=== PATIENT | female | born 1970 | race Caucasian/White ===

== ENCOUNTER 2024-09-14 00:54 | Inpatient (IN) | payer BC ==
[~2024-09-14] VITALS: Ht 167.6 cm; Wt 68.0 kg
[2024-09-14] VITALS (15 sets, daily range): BP systolic 85–135; BP diastolic 51–103; PULSE 78–112; RESP 10–20; TEMP 96.7–98.7; O2SAT 92–100
[2024-09-14] MEDS ORDERED: octreotide inj. 1,250 MCG in normal saline 250ml IV soln 250 ML IV ONE (01:15)
[2024-09-14] MEDS: normal saline 1000ml 1,000 ML IV ONE (01:43)
[2024-09-14 02:01] LABS: INR 1.9 INR; PROTHROMBIN TIME 18.9 SECONDS (9.0-12.0)
[2024-09-14] MEDS: octreotide inj. 500 MCG in normal saline 100ml IV soln 97.5 ML IV SCH (02:02)
[2024-09-14 02:04] LABS: ALANINE AMINOTRANSFERASE 30 U/L (12-78); ALKALINE PHOSPHATASE 74 IU/L (46-116); ANION GAP 4 (8-16); ASPARTATE AMINO TRANSFERASE 81 U/L (10-37); BILIRUBIN,TOTAL 9.1 MG/DL (0.1-1.0); BLOOD UREA NITROGEN 10 MG/DL (7-18); BUN/CREATININE RATIO 16.4 (10.0-20.0); CALCIUM 7.8 MG/DL (8.5-10.1); CHLORIDE 98 MMOL/L (99-107); CREATININE 0.61 MG/DL (0.40-0.90); GLUCOSE 140 MG/DL (70-104); SODIUM 137 MMOL/L (135-145); TOTAL CARBON DIOXIDE 34.7 MMOL/L (24-32); eCRCL 98 ML/MIN; eGFR > 90 ML/MIN
[2024-09-14] MEDS: pantoprazole 40MG/NS 100ML BAG 100 ML IV ONE (02:05)
[2024-09-14 02:21] LABS: ALBUMIN/GLOBULIN RATIO 0.6 (1.1-1.5); HEMOGLOBIN 9.1 g/dl (12.0-16.0); MONOCYTES # (AUTO) 0.5 X10'3 (0-0.9); POTASSIUM 3.4 MMOL/L (3.5-5.1); TOTAL PROTEIN 5.3 G/DL (6.4-8.2)
[2024-09-14 02:23] LABS: BASOPHILS % (AUTO) 0.7 % (0-1); EOSINOPHILS % (AUTO) 1.1 % (0-6); HEMATOCRIT 25.7 % (35.0-45.0); LYMPHOCYTES # (AUTO) 1.2 X10'3 (1.1-4.8); LYMPHOCYTES % (AUTO) 24.8 % (21-51); MEAN CORPUSCULAR HEMOGLOBIN 41.8 PG (27.0-31.0); MEAN CORPUSCULAR HGB CONC 35.3 g/dL (33.0-36.5); MEAN CORPUSCULAR VOLUME 118.3 FL (78-98); MEAN PLATELET VOLUME 8.8 FL (7.4-10.4); MONOCYTES % (AUTO) 11.5 % (2-12); NEUTROPHILS # (AUTO) 2.9 X10'3 (1.8-7.7); NEUTROPHILS % (AUTO) 61.9 % (42-75); RED BLOOD COUNT 2.17 X10'6 (4.20-5.60); RED CELL DISTRIBUTION WIDTH 15.5 % (11.5-14.5); WHITE BLOOD COUNT 4.6 X10'3 (4.5-11.0)
[2024-09-14 02:26] LABS: PLATELET COUNT 50 X10'3 (140-440)
[2024-09-14] MEDS ORDERED: potassium Cl 40MEQ/1/2NS 520ml 520 ML IV PRN (04:05)
[2024-09-14] MEDS ORDERED: haloperidol lactate 5mg/ml inj IM PRN (04:05)
[2024-09-14] MEDS ORDERED: magnesium hydroxide 30ml (MOM) UD suspension PO PRN (04:05)
[2024-09-14] MEDS ORDERED: ondansetron/PF 4mg/2ml inj IV PRN (04:05)
[2024-09-14] MEDS ORDERED: magnesium Cl slow-release 64mg tablet PO PRN (04:05)
[2024-09-14] MEDS ORDERED: potassium Cl 20 mEq SR tablet PO PRN (04:05)
[2024-09-14] MEDS ORDERED: magnesium sulf-water 4G/100mL 100 ML IV PRN (04:05)
[2024-09-14] MEDS ORDERED: dextrose 50%-water 50ml dispensing syringe IV PRN (04:05)
[2024-09-14] MEDS ORDERED: magnesium sulf-water 2g/50mL 50 ML IV PRN (04:05)
[2024-09-14 04:49] LABS: ELLIPTOCYTES 1+; PLATELET ESTIMATE DECREASED; STOMATOCYTES 2+
[2024-09-14] MEDS: K and/or MAG REPLACEMENT MC SCH (08:00)
[2024-09-14] MEDS: docusate sod 100mg capsule PO SCH (08:00)
[2024-09-14] MEDS ORDERED: LIDOcaine 2% Viscous 15ml cup ONE (08:08)
[2024-09-14] MEDS ORDERED: fentaNYL/PF 50MCG/1 ML 2ML syringe ONE (08:15)
[2024-09-14] MEDS ORDERED: MIDAZolam 1 MG/ML 5ML VIAL ONE (08:16)
[2024-09-14] MEDS: nicotine 14mg patch - 24hr TD SCH (09:53)
[2024-09-14] MEDS: folic acid 1mg/0.2ml inj IV SCH (09:53)
[2024-09-14] MEDS: thiamine 100mg/ml 2ml inj. IV SCH (09:53)
[2024-09-14 10:34] LABS: HEMATOCRIT 30.3 % (35.0-45.0); HEMOGLOBIN 10.5 g/dl (12.0-16.0); MEAN CORPUSCULAR HEMOGLOBIN 39.1 PG (27.0-31.0); MEAN CORPUSCULAR HGB CONC 34.8 g/dL (33.0-36.5); MEAN CORPUSCULAR VOLUME 112.3 FL (78-98); MEAN PLATELET VOLUME 8.9 FL (7.4-10.4); PLATELET COUNT 54 X10'3 (140-440); RED CELL DISTRIBUTION WIDTH 22.5 % (11.5-14.5); WHITE BLOOD COUNT 3.6 X10'3 (4.5-11.0)
[2024-09-14 10:35] LABS: HCG SERUM QL NEGATIVE
[2024-09-14] MEDS: potassium Cl 20 mEq SR tablet PO PRN (13:32)
[2024-09-14 15:22] LABS: % IRON SATURATION 103 % (11-46); IRON 150 UG/DL (49-151); TOTAL IRON BINDING CAPACITY 145 UG/DL (259-388)
[2024-09-14 15:59] LABS: HEMATOCRIT 28.9 % (35.0-45.0); HEMOGLOBIN 10.1 g/dl (12.0-16.0); MEAN CORPUSCULAR HEMOGLOBIN 39.4 PG (27.0-31.0); MEAN CORPUSCULAR VOLUME 112.8 FL (78-98); MEAN PLATELET VOLUME 9.1 FL (7.4-10.4); PLATELET COUNT 53 X10'3 (140-440); RED BLOOD COUNT 2.56 X10'6 (4.20-5.60); RED CELL DISTRIBUTION WIDTH 23.1 % (11.5-14.5); WHITE BLOOD COUNT 4.6 X10'3 (4.5-11.0)
[2024-09-14] MEDS: pantoprazole 40MG/NS 100ML BAG 100 ML IV SCH (16:10)
[2024-09-14] MEDS ORDERED: DIAZ5TAB5 PO (17:35)
[2024-09-14] MEDS ORDERED: ONDA-103 PO (17:35)
[2024-09-14 20:25] LABS: HEMATOCRIT 30.2 % (35.0-45.0); HEMOGLOBIN 10.5 g/dl (12.0-16.0); MEAN CORPUSCULAR HEMOGLOBIN 39.1 PG (27.0-31.0); MEAN CORPUSCULAR HGB CONC 34.7 g/dL (33.0-36.5); MEAN CORPUSCULAR VOLUME 112.7 FL (78-98); MEAN PLATELET VOLUME 8.8 FL (7.4-10.4); PLATELET COUNT 54 X10'3 (140-440); RED BLOOD COUNT 2.68 X10'6 (4.20-5.60); RED CELL DISTRIBUTION WIDTH 22.9 % (11.5-14.5); WHITE BLOOD COUNT 4.9 X10'3 (4.5-11.0)
[2024-09-14] MEDS: LORazepam 2 mg/ml vial IV PRN (21:30)
[2024-09-15] VITALS (9 sets, daily range): BP systolic 78–112; BP diastolic 34–70; PULSE 64–102; RESP 13–20; TEMP 97.4–99.2; O2SAT 89–100
[2024-09-15] MEDS: lactulose 20gm/30ml cup PO SCH (00:43)
[2024-09-15 06:33] LABS: BASOPHILS % (AUTO) 0.9 % (0-1); EOSINOPHILS # (AUTO) 0.1 X10'3 (0-0.9); EOSINOPHILS % (AUTO) 2.3 % (0-6); HEMATOCRIT 30.1 % (35.0-45.0); HEMOGLOBIN 10.4 g/dl (12.0-16.0); LYMPHOCYTES # (AUTO) 1.1 X10'3 (1.1-4.8); LYMPHOCYTES % (AUTO) 28.2 % (21-51); MEAN CORPUSCULAR HEMOGLOBIN 39.5 PG (27.0-31.0); MEAN CORPUSCULAR HGB CONC 34.6 g/dL (33.0-36.5); MEAN CORPUSCULAR VOLUME 114.2 FL (78-98); MONOCYTES # (AUTO) 0.4 X10'3 (0-0.9); MONOCYTES % (AUTO) 10.7 % (2-12); NEUTROPHILS # (AUTO) 2.2 X10'3 (1.8-7.7); NEUTROPHILS % (AUTO) 57.9 % (42-75); PLATELET COUNT 53 X10'3 (140-440); RED BLOOD COUNT 2.64 X10'6 (4.20-5.60); WHITE BLOOD COUNT 3.7 X10'3 (4.5-11.0)
[2024-09-15 06:45] LABS: ALANINE AMINOTRANSFERASE 16 U/L (12-78); ALBUMIN 1.9 G/DL (3.4-5.0); ALKALINE PHOSPHATASE 71 IU/L (46-116); ANION GAP 1 (8-16); ASPARTATE AMINO TRANSFERASE 85 U/L (10-37); BILIRUBIN,TOTAL 8.1 MG/DL (0.1-1.0); BLOOD UREA NITROGEN 12 MG/DL (7-18); CALCIUM 7.2 MG/DL (8.5-10.1); CHLORIDE 104 MMOL/L (99-107); CREATININE 0.63 MG/DL (0.40-0.90); GLUCOSE 88 MG/DL (70-104); MAGNESIUM 1.7 MG/DL (1.5-2.4); SODIUM 140 MMOL/L (135-145); TOTAL CARBON DIOXIDE 34.9 MMOL/L (24-32); eCRCL 94 ML/MIN; eGFR > 90 ML/MIN
[2024-09-15 06:46] LABS: APTT 31 SECONDS (22-32); INR 1.7 INR; PROTHROMBIN TIME 16.7 SECONDS (9.0-12.0)
[2024-09-15 06:53] LABS: ALBUMIN/GLOBULIN RATIO 0.6 (1.1-1.5); TOTAL PROTEIN 5.1 G/DL (6.4-8.2)
[2024-09-15] MEDS: rifaximin 550mg tablet PO SCH (09:44)
[2024-09-15] MEDS ORDERED: albuterol 2.5 MG/3 ML nebule NEB PRN (10:40)
[2024-09-15] MEDS: LORazepam 2 mg/ml vial IV PRN (17:22)
[2024-09-16] VITALS (8 sets, daily range): BP systolic 103–138; BP diastolic 49–77; PULSE 56–114; RESP 14–21; TEMP 96.7–99; O2SAT 91–96
[2024-09-16 07:23] LABS: BASOPHILS % (AUTO) 1.4 % (0-1); EOSINOPHILS # (AUTO) 0.1 X10'3 (0-0.9); EOSINOPHILS % (AUTO) 1.7 % (0-6); HEMATOCRIT 30.7 % (35.0-45.0); HEMOGLOBIN 10.5 g/dl (12.0-16.0); LYMPHOCYTES # (AUTO) 0.9 X10'3 (1.1-4.8); LYMPHOCYTES % (AUTO) 26.3 % (21-51); MEAN CORPUSCULAR HEMOGLOBIN 39.4 PG (27.0-31.0); MEAN CORPUSCULAR HGB CONC 34.1 g/dL (33.0-36.5); MEAN CORPUSCULAR VOLUME 115.7 FL (78-98); MEAN PLATELET VOLUME 9.2 FL (7.4-10.4); MONOCYTES # (AUTO) 0.3 X10'3 (0-0.9); MONOCYTES % (AUTO) 8.6 % (2-12); NEUTROPHILS # (AUTO) 2.2 X10'3 (1.8-7.7); RED BLOOD COUNT 2.65 X10'6 (4.20-5.60); RED CELL DISTRIBUTION WIDTH 23.2 % (11.5-14.5); WHITE BLOOD COUNT 3.5 X10'3 (4.5-11.0)
[2024-09-16 07:29] LABS: PLATELET COUNT 47 X10'3 (140-440)
[2024-09-16 07:34] LABS: APTT 30 SECONDS (22-32); INR 1.6 INR; PROTHROMBIN TIME 16.5 SECONDS (9.0-12.0)
[2024-09-16 07:52] LABS: ALANINE AMINOTRANSFERASE 18 U/L (12-78); ALKALINE PHOSPHATASE 71 IU/L (46-116); ANION GAP 5 (8-16); ASPARTATE AMINO TRANSFERASE 89 U/L (10-37); BILIRUBIN,TOTAL 9.1 MG/DL (0.1-1.0); BLOOD UREA NITROGEN 10 MG/DL (7-18); BUN/CREATININE RATIO 15.6 (10.0-20.0); CALCIUM 7.5 MG/DL (8.5-10.1); CHLORIDE 109 MMOL/L (99-107); CREATININE 0.64 MG/DL (0.40-0.90); GLUCOSE 103 MG/DL (70-104); MAGNESIUM 1.8 MG/DL (1.5-2.4); SODIUM 146 MMOL/L (135-145); TOTAL CARBON DIOXIDE 32.5 MMOL/L (24-32); eCRCL 93 ML/MIN; eGFR > 90 ML/MIN
[2024-09-16 08:01] LABS: ALBUMIN/GLOBULIN RATIO 0.6 (1.1-1.5); PHOSPHORUS 2.4 MG/DL (2.3-4.5); POTASSIUM 3.5 MMOL/L (3.5-5.1); TOTAL PROTEIN 5.3 G/DL (6.4-8.2)
[2024-09-16] MEDS ORDERED: haloperidol 5mg tablet PO PRN (20:10)
[2024-09-16] MEDS ORDERED: LORazepam 1 MG tablet PO PRN (20:10)
[2024-09-16] MEDS ORDERED: haloperidol lactate 5mg/ml inj IM PRN (20:10)
[2024-09-16] MEDS: LORazepam 2 mg/ml vial IV PRN (21:18)
[2024-09-17] VITALS (10 sets, daily range): BP systolic 114–157; BP diastolic 59–72; PULSE 87–108; RESP 14–18; TEMP 97.1–98.8; O2SAT 92–94
[2024-09-17 05:21] LABS: HBSAG SCREEN Negative (Negative); HEPATITIS C VIRUS ANTIBODY Non Reactive (Non Reactive)
[2024-09-17 07:52] LABS: APTT 30 SECONDS (22-32); INR 1.8 INR; PROTHROMBIN TIME 17.8 SECONDS (9.0-12.0)
[2024-09-17 09:18] LABS: BASOPHILS % (AUTO) 0.8 % (0-1); EOSINOPHILS # (AUTO) 0.1 X10'3 (0-0.9); EOSINOPHILS % (AUTO) 1.2 % (0-6); HEMATOCRIT 34.4 % (35.0-45.0); HEMOGLOBIN 11.6 g/dl (12.0-16.0); LYMPHOCYTES # (AUTO) 1.1 X10'3 (1.1-4.8); LYMPHOCYTES % (AUTO) 25.2 % (21-51); MEAN CORPUSCULAR HEMOGLOBIN 40.4 PG (27.0-31.0); MEAN CORPUSCULAR HGB CONC 33.8 g/dL (33.0-36.5); MEAN CORPUSCULAR VOLUME 119.5 FL (78-98); MEAN PLATELET VOLUME 9.6 FL (7.4-10.4); MONOCYTES # (AUTO) 0.5 X10'3 (0-0.9); MONOCYTES % (AUTO) 11.8 % (2-12); NEUTROPHILS # (AUTO) 2.7 X10'3 (1.8-7.7); PLATELET COUNT 51 X10'3 (140-440); RED BLOOD COUNT 2.88 X10'6 (4.20-5.60); RED CELL DISTRIBUTION WIDTH 24.1 % (11.5-14.5); WHITE BLOOD COUNT 4.5 X10'3 (4.5-11.0)
[2024-09-17] MEDS ORDERED: CefTRIAXone 2gm/D5W 50ml BAG 50 ML IV SCH (09:30)
[2024-09-17 09:45] LABS: ALANINE AMINOTRANSFERASE 27 U/L (12-78); ALBUMIN 2.1 G/DL (3.4-5.0); ALKALINE PHOSPHATASE 77 IU/L (46-116); ANION GAP 10 (8-16); BILIRUBIN,TOTAL 11.7 MG/DL (0.1-1.0); BLOOD UREA NITROGEN 7 MG/DL (7-18); BUN/CREATININE RATIO 12.3 (10.0-20.0); CALCIUM 7.9 MG/DL (8.5-10.1); CHLORIDE 110 MMOL/L (99-107); CREATININE 0.57 MG/DL (0.40-0.90); GLUCOSE 129 MG/DL (70-104); MAGNESIUM 1.7 MG/DL (1.5-2.4); SODIUM 150 MMOL/L (135-145); TOTAL CARBON DIOXIDE 30.4 MMOL/L (24-32); eCRCL 104 ML/MIN; eGFR > 90 ML/MIN
[2024-09-17 09:46] LABS: ALBUMIN/GLOBULIN RATIO 0.6 (1.1-1.5); ASPARTATE AMINO TRANSFERASE 104 U/L (10-37); PHOSPHORUS 3.1 MG/DL (2.3-4.5); POTASSIUM 3.6 MMOL/L (3.5-5.1); TOTAL PROTEIN 5.7 G/DL (6.4-8.2)
[2024-09-17 09:50] LABS: ANISOCYTOSIS 3+; BURR CELLS FEW; ELLIPTOCYTES FEW; PLATELET ESTIMATE DECREASED; TEAR DROP CELLS FEW
[2024-09-17] MEDS: Ursodiol 300mg capsule PO SCH (14:23)
[2024-09-17] MEDS: dextrose 5%-water 1,000 ML IV SCH (14:23)
[2024-09-17] MEDS: pantoprazole 40 MG vial IV SCH (21:28)
[2024-09-18] VITALS (16 sets, daily range): BP systolic 112–150; BP diastolic 54–75; PULSE 74–103; RESP 14–20; TEMP 96.8–97.7; O2SAT 93–98
[2024-09-18 05:27] LABS: AFP,SERUM, TUMOR MARKER 4.2 ng/mL (0.0-9.2)
[2024-09-18 07:42] LABS: BASOPHILS % (AUTO) 1.1 % (0-1); EOSINOPHILS # (AUTO) 0.1 X10'3 (0-0.9); EOSINOPHILS % (AUTO) 1.9 % (0-6); HEMATOCRIT 31.5 % (35.0-45.0); HEMOGLOBIN 10.8 g/dl (12.0-16.0); LYMPHOCYTES # (AUTO) 0.9 X10'3 (1.1-4.8); LYMPHOCYTES % (AUTO) 23.8 % (21-51); MEAN CORPUSCULAR HEMOGLOBIN 40.4 PG (27.0-31.0); MEAN CORPUSCULAR HGB CONC 34.3 g/dL (33.0-36.5); MEAN CORPUSCULAR VOLUME 117.8 FL (78-98); MEAN PLATELET VOLUME 9.4 FL (7.4-10.4); MONOCYTES # (AUTO) 0.6 X10'3 (0-0.9); MONOCYTES % (AUTO) 14.5 % (2-12); NEUTROPHILS # (AUTO) 2.2 X10'3 (1.8-7.7); NEUTROPHILS % (AUTO) 58.7 % (42-75); RED BLOOD COUNT 2.68 X10'6 (4.20-5.60); RED CELL DISTRIBUTION WIDTH 23.5 % (11.5-14.5); WHITE BLOOD COUNT 3.8 X10'3 (4.5-11.0)
[2024-09-18 07:54] LABS: INR 1.9 INR; PROTHROMBIN TIME 18.6 SECONDS (9.0-12.0)
[2024-09-18 07:58] LABS: PLATELET COUNT 46 X10'3 (140-440)
[2024-09-18 08:02] LABS: ALANINE AMINOTRANSFERASE 29 U/L (12-78); ALBUMIN 1.9 G/DL (3.4-5.0); ALKALINE PHOSPHATASE 72 IU/L (46-116); ANION GAP 4 (8-16); ASPARTATE AMINO TRANSFERASE 112 U/L (10-37); BILIRUBIN,TOTAL 12.3 MG/DL (0.1-1.0); BLOOD UREA NITROGEN 5 MG/DL (7-18); BUN/CREATININE RATIO 7.4 (10.0-20.0); CALCIUM 7.9 MG/DL (8.5-10.1); CHLORIDE 110 MMOL/L (99-107); CREATININE 0.68 MG/DL (0.40-0.90); GLUCOSE 136 MG/DL (70-104); MAGNESIUM 1.5 MG/DL (1.5-2.4); SODIUM 148 MMOL/L (135-145); TOTAL CARBON DIOXIDE 33.7 MMOL/L (24-32); eCRCL 88 ML/MIN; eGFR 90 ML/MIN
[2024-09-18 08:08] LABS: ALBUMIN/GLOBULIN RATIO 0.6 (1.1-1.5); PHOSPHORUS 2.3 MG/DL (2.3-4.5); TOTAL PROTEIN 5.2 G/DL (6.4-8.2)
[2024-09-18] MEDS: thiamine 100mg tablet PO SCH (08:44)
[2024-09-18] MEDS: folic acid 1mg tablet PO SCH (08:45)
[2024-09-18] MEDS ORDERED: magnesium sulf-water 2g/50mL 50 ML IV PRN (09:50)
[2024-09-18] MEDS ORDERED: magnesium Cl slow-release 64mg tablet PO PRN (09:50)
[2024-09-18] MEDS ORDERED: potassium Cl 20 mEq SR tablet PO PRN (09:50)
[2024-09-18] MEDS ORDERED: magnesium sulf-water 4G/100mL 100 ML IV PRN (09:50)
[2024-09-18] MEDS: potassium Cl 40MEQ/1/2NS 520ml 520 ML IV PRN (10:06)
[2024-09-18] MEDS: lactose-reduced food (Ensure Enlive) - 237ml bottle PO SCH (13:06)
[2024-09-18 14:12] LABS: HEMATOCRIT 34.4 % (35.0-45.0); HEMOGLOBIN 11.6 g/dl (12.0-16.0); MEAN CORPUSCULAR HEMOGLOBIN 40.4 PG (27.0-31.0); MEAN CORPUSCULAR HGB CONC 33.9 g/dL (33.0-36.5); MEAN CORPUSCULAR VOLUME 119.4 FL (78-98); MEAN PLATELET VOLUME 9.6 FL (7.4-10.4); PLATELET COUNT 56 X10'3 (140-440); RED BLOOD COUNT 2.88 X10'6 (4.20-5.60); WHITE BLOOD COUNT 5.2 X10'3 (4.5-11.0)
[2024-09-19] VITALS (10 sets, daily range): BP systolic 92–127; BP diastolic 44–74; PULSE 89–107; RESP 16–23; TEMP 96.7–98.9; O2SAT 92–98
[2024-09-19 05:03] LABS: BASOPHILS # (AUTO) 0.1 X10'3 (0-0.2); BASOPHILS % (AUTO) 1.7 % (0-1); EOSINOPHILS # (AUTO) 0.1 X10'3 (0-0.9); EOSINOPHILS % (AUTO) 1.9 % (0-6); HEMATOCRIT 30.9 % (35.0-45.0); HEMOGLOBIN 10.7 g/dl (12.0-16.0); MEAN CORPUSCULAR HEMOGLOBIN 41.1 PG (27.0-31.0); MEAN CORPUSCULAR HGB CONC 34.7 g/dL (33.0-36.5); MEAN CORPUSCULAR VOLUME 118.3 FL (78-98); MEAN PLATELET VOLUME 9.8 FL (7.4-10.4); MONOCYTES # (AUTO) 0.6 X10'3 (0-0.9); NEUTROPHILS # (AUTO) 2.2 X10'3 (1.8-7.7); NEUTROPHILS % (AUTO) 56.4 % (42-75); RED BLOOD COUNT 2.61 X10'6 (4.20-5.60); RED CELL DISTRIBUTION WIDTH 23.2 % (11.5-14.5)
[2024-09-19 05:14] LABS: PROTHROMBIN TIME 20.3 SECONDS (9.0-12.0)
[2024-09-19 05:23] LABS: PLATELET COUNT 50 X10'3 (140-440)
[2024-09-19 05:38] LABS: ALANINE AMINOTRANSFERASE 38 U/L (12-78); ALBUMIN 1.8 G/DL (3.4-5.0); ALKALINE PHOSPHATASE 74 IU/L (46-116); ANION GAP 7 (8-16); BILIRUBIN,TOTAL 14.8 MG/DL (0.1-1.0); BLOOD UREA NITROGEN 4 MG/DL (7-18); CALCIUM 8.2 MG/DL (8.5-10.1); CHLORIDE 109 MMOL/L (99-107); GLUCOSE 142 MG/DL (70-104); MAGNESIUM 1.6 MG/DL (1.5-2.4); SODIUM 143 MMOL/L (135-145); TOTAL CARBON DIOXIDE 27.2 MMOL/L (24-32); eCRCL 119 ML/MIN; eGFR > 90 ML/MIN
[2024-09-19 05:40] LABS: ALBUMIN/GLOBULIN RATIO 0.5 (1.1-1.5); ASPARTATE AMINO TRANSFERASE 122 U/L (10-37); POTASSIUM 3.5 MMOL/L (3.5-5.1); TOTAL PROTEIN 5.2 G/DL (6.4-8.2)
[2024-09-19 15:03] LABS: POTASSIUM 2.8 MMOL/L (3.5-5.1)
[2024-09-19] MEDS: lactulose 20gm/30ml cup PO SCH (21:39)
[2024-09-20] VITALS (16 sets, daily range): BP systolic 94–132; BP diastolic 55–80; PULSE 83–104; RESP 16–20; TEMP 97–98.4; O2SAT 92–99
[2024-09-20 08:25] LABS: BASOPHILS # (AUTO) 0.1 X10'3 (0-0.2); BASOPHILS % (AUTO) 1.6 % (0-1); EOSINOPHILS # (AUTO) 0.1 X10'3 (0-0.9); EOSINOPHILS % (AUTO) 1.5 % (0-6); HEMATOCRIT 30.6 % (35.0-45.0); HEMOGLOBIN 10.5 g/dl (12.0-16.0); LYMPHOCYTES # (AUTO) 1.2 X10'3 (1.1-4.8); LYMPHOCYTES % (AUTO) 22.1 % (21-51); MEAN CORPUSCULAR HEMOGLOBIN 40.1 PG (27.0-31.0); MEAN CORPUSCULAR HGB CONC 34.3 g/dL (33.0-36.5); MEAN PLATELET VOLUME 9.4 FL (7.4-10.4); MONOCYTES # (AUTO) 0.8 X10'3 (0-0.9); MONOCYTES % (AUTO) 13.6 % (2-12); NEUTROPHILS # (AUTO) 3.4 X10'3 (1.8-7.7); NEUTROPHILS % (AUTO) 61.2 % (42-75); RED BLOOD COUNT 2.61 X10'6 (4.20-5.60); RED CELL DISTRIBUTION WIDTH 22.4 % (11.5-14.5); WHITE BLOOD COUNT 5.6 X10'3 (4.5-11.0)
[2024-09-20 08:26] LABS: ALANINE AMINOTRANSFERASE 37 U/L (12-78); ALBUMIN 1.9 G/DL (3.4-5.0); ALKALINE PHOSPHATASE 80 IU/L (46-116); ANION GAP 7 (8-16); BILIRUBIN,TOTAL 19.9 MG/DL (0.1-1.0); BLOOD UREA NITROGEN 4 MG/DL (7-18); CALCIUM 8.1 MG/DL (8.5-10.1); CHLORIDE 101 MMOL/L (99-107); SODIUM 137 MMOL/L (135-145); TOTAL CARBON DIOXIDE 29.2 MMOL/L (24-32)
[2024-09-20 08:29] LABS: PLATELET COUNT 49 X10'3 (140-440)
[2024-09-20 08:33] LABS: ALBUMIN/GLOBULIN RATIO 0.6 (1.1-1.5); ASPARTATE AMINO TRANSFERASE 124 U/L (10-37); BUN/CREATININE RATIO 7.1 (10.0-20.0); CREATININE 0.56 MG/DL (0.40-0.90); GLUCOSE 138 MG/DL (70-104); POTASSIUM 3.1 MMOL/L (3.5-5.1); TOTAL PROTEIN 5.1 G/DL (6.4-8.2); eCRCL 106 ML/MIN; eGFR > 90 ML/MIN
[2024-09-20 08:55] LABS: ANISOCYTOSIS 3+; HYPOCHROMASIA 1+; PLATELET ESTIMATE DECREASED; TARGET CELLS FEW
[2024-09-20 08:56] LABS: BURR CELLS FEW
[2024-09-20] MEDS: propranolol 10mg tablet PO SCH (10:24)
[2024-09-20] MEDS: potassium Cl 20 mEq SR tablet PO PRN (10:55)
[2024-09-21] VITALS (10 sets, daily range): BP systolic 95–120; BP diastolic 57–88; PULSE 69–85; RESP 16–19; TEMP 97–98.6; O2SAT 90–100
[2024-09-21 09:01] LABS: BASOPHILS # (AUTO) 0.1 X10'3 (0-0.2); BASOPHILS % (AUTO) 1.2 % (0-1); EOSINOPHILS # (AUTO) 0.1 X10'3 (0-0.9); EOSINOPHILS % (AUTO) 1.4 % (0-6); HEMATOCRIT 31.5 % (35.0-45.0); HEMOGLOBIN 10.9 g/dl (12.0-16.0); LYMPHOCYTES # (AUTO) 1.1 X10'3 (1.1-4.8); MEAN CORPUSCULAR HEMOGLOBIN 40.4 PG (27.0-31.0); MEAN CORPUSCULAR HGB CONC 34.4 g/dL (33.0-36.5); MEAN CORPUSCULAR VOLUME 117.2 FL (78-98); MEAN PLATELET VOLUME 9.5 FL (7.4-10.4); MONOCYTES # (AUTO) 0.9 X10'3 (0-0.9); MONOCYTES % (AUTO) 12.6 % (2-12); NEUTROPHILS # (AUTO) 4.7 X10'3 (1.8-7.7); NEUTROPHILS % (AUTO) 68.8 % (42-75); PLATELET COUNT 81 X10'3 (140-440); RED BLOOD COUNT 2.69 X10'6 (4.20-5.60); WHITE BLOOD COUNT 6.9 X10'3 (4.5-11.0)
[2024-09-21 10:07] LABS: ALANINE AMINOTRANSFERASE 42 U/L (12-78); ALBUMIN 1.9 G/DL (3.4-5.0); ALKALINE PHOSPHATASE 92 IU/L (46-116); ANION GAP 7 (8-16); BILIRUBIN,TOTAL 24.9 MG/DL (0.1-1.0); BLOOD UREA NITROGEN 3 MG/DL (7-18); BUN/CREATININE RATIO 9.4 (10.0-20.0); CALCIUM 8.5 MG/DL (8.5-10.1); CHLORIDE 101 MMOL/L (99-107); CREATININE 0.32 MG/DL (0.40-0.90); SODIUM 135 MMOL/L (135-145); TOTAL CARBON DIOXIDE 27.2 MMOL/L (24-32); eCRCL 186 ML/MIN; eGFR > 90 ML/MIN
[2024-09-21 10:11] LABS: ALBUMIN/GLOBULIN RATIO 0.5 (1.1-1.5); ASPARTATE AMINO TRANSFERASE 112 U/L (10-37); GLUCOSE 121 MG/DL (70-104); POTASSIUM 3.3 MMOL/L (3.5-5.1); TOTAL PROTEIN 5.4 G/DL (6.4-8.2)
[2024-09-21] MEDS ORDERED: magnesium sulf-water 2g/50mL 50 ML IV PRN (12:15)
[2024-09-21] MEDS ORDERED: potassium Cl 20 mEq SR tablet PO PRN (12:15)
[2024-09-21] MEDS ORDERED: potassium Cl 40MEQ/1/2NS 520ml 520 ML IV PRN (12:15)
[2024-09-21] MEDS ORDERED: magnesium sulf-water 4G/100mL 100 ML IV PRN (12:15)
[2024-09-21 12:39] LABS: MAGNESIUM 1.4 MG/DL (1.5-2.4)
[2024-09-21] MEDS: potassium Cl 20 mEq SR tablet PO PRN (13:19)
[2024-09-22] VITALS (12 sets, daily range): BP systolic 88–127; BP diastolic 52–67; PULSE 70–81; RESP 11–18; TEMP 97.1–98.6; O2SAT 95–100
[2024-09-22] MEDS: magnesium Cl slow-release 64mg tablet PO PRN (08:02)
[2024-09-22 13:36] LABS: BASOPHILS % (AUTO) 0.3 % (0-1); EOSINOPHILS # (AUTO) 0.1 X10'3 (0-0.9); HEMATOCRIT 32.3 % (35.0-45.0); HEMOGLOBIN 11.3 g/dl (12.0-16.0); LYMPHOCYTES # (AUTO) 1.2 X10'3 (1.1-4.8); LYMPHOCYTES % (AUTO) 13.3 % (21-51); MEAN CORPUSCULAR HEMOGLOBIN 40.9 PG (27.0-31.0); MEAN CORPUSCULAR VOLUME 116.8 FL (78-98); MEAN PLATELET VOLUME 9.7 FL (7.4-10.4); MONOCYTES % (AUTO) 11.9 % (2-12); NEUTROPHILS # (AUTO) 6.4 X10'3 (1.8-7.7); NEUTROPHILS % (AUTO) 73.5 % (42-75); PLATELET COUNT 112 X10'3 (140-440); RED BLOOD COUNT 2.76 X10'6 (4.20-5.60); RED CELL DISTRIBUTION WIDTH 22.1 % (11.5-14.5); WHITE BLOOD COUNT 8.7 X10'3 (4.5-11.0)
[2024-09-22 13:53] LABS: ALANINE AMINOTRANSFERASE 36 U/L (12-78); ALBUMIN 1.8 G/DL (3.4-5.0); ALKALINE PHOSPHATASE 93 IU/L (46-116); ANION GAP 5 (8-16); BLOOD UREA NITROGEN 6 MG/DL (7-18); CALCIUM 8.3 MG/DL (8.5-10.1); CHLORIDE 101 MMOL/L (99-107); SODIUM 133 MMOL/L (135-145); TOTAL CARBON DIOXIDE 26.9 MMOL/L (24-32)
[2024-09-22 13:57] LABS: ALBUMIN/GLOBULIN RATIO 0.5 (1.1-1.5); ASPARTATE AMINO TRANSFERASE 99 U/L (10-37); BILIRUBIN,TOTAL 27.2 MG/DL (0.1-1.0); BUN/CREATININE RATIO 11.8 (10.0-20.0); CREATININE 0.51 MG/DL (0.40-0.90); GLUCOSE 144 MG/DL (70-104); POTASSIUM 3.9 MMOL/L (3.5-5.1); TOTAL PROTEIN 5.3 G/DL (6.4-8.2); eCRCL 117 ML/MIN; eGFR > 90 ML/MIN
[2024-09-23 02:00] VITALS: BP 123/53; PULSE 76; RESP 17; TEMP 97.8; O2SAT 98
[2024-09-23 07:00] VITALS: BP 108/43; PULSE 74; RESP 16; TEMP 97.3; O2SAT 97
[2024-09-23 07:19] LABS: BASOPHILS # (AUTO) 0.1 X10'3 (0-0.2); BASOPHILS % (AUTO) 1.1 % (0-1); EOSINOPHILS # (AUTO) 0.1 X10'3 (0-0.9); EOSINOPHILS % (AUTO) 1.4 % (0-6); HEMATOCRIT 30.8 % (35.0-45.0); HEMOGLOBIN 10.6 g/dl (12.0-16.0); LYMPHOCYTES # (AUTO) 1.1 X10'3 (1.1-4.8); LYMPHOCYTES % (AUTO) 12.6 % (21-51); MEAN CORPUSCULAR HEMOGLOBIN 40.3 PG (27.0-31.0); MEAN CORPUSCULAR HGB CONC 34.5 g/dL (33.0-36.5); MEAN CORPUSCULAR VOLUME 116.8 FL (78-98); MEAN PLATELET VOLUME 9.6 FL (7.4-10.4); MONOCYTES # (AUTO) 1.1 X10'3 (0-0.9); MONOCYTES % (AUTO) 13.2 % (2-12); NEUTROPHILS % (AUTO) 71.7 % (42-75); PLATELET COUNT 107 X10'3 (140-440); RED BLOOD COUNT 2.63 X10'6 (4.20-5.60); RED CELL DISTRIBUTION WIDTH 21.4 % (11.5-14.5); WHITE BLOOD COUNT 8.4 X10'3 (4.5-11.0)
[2024-09-23 07:42] LABS: ALANINE AMINOTRANSFERASE 32 U/L (12-78); ALBUMIN 1.7 G/DL (3.4-5.0); ALKALINE PHOSPHATASE 92 IU/L (46-116); ANION GAP 8 (8-16); BLOOD UREA NITROGEN 6 MG/DL (7-18); CALCIUM 7.9 MG/DL (8.5-10.1); CHLORIDE 103 MMOL/L (99-107); MAGNESIUM 1.4 MG/DL (1.5-2.4); SODIUM 136 MMOL/L (135-145)
[2024-09-23 07:45] LABS: ALBUMIN/GLOBULIN RATIO 0.5 (1.1-1.5); ASPARTATE AMINO TRANSFERASE 90 U/L (10-37); BILIRUBIN,TOTAL 25.7 MG/DL (0.1-1.0); BUN/CREATININE RATIO 10.2 (10.0-20.0); CREATININE 0.59 MG/DL (0.40-0.90); GLUCOSE 128 MG/DL (70-104); POTASSIUM 3.6 MMOL/L (3.5-5.1); eCRCL 101 ML/MIN; eGFR > 90 ML/MIN
[2024-09-23 11:00] VITALS: BP 90/49; PULSE 74; RESP 18; TEMP 97.9; O2SAT 99
[2024-09-23 11:49] VITALS: BP 92/58; PULSE 71
[2024-09-23 14:34] VITALS: PULSE 70; RESP 16; O2SAT 98
[2024-09-23 15:00] VITALS: BP 90/54; PULSE 71; RESP 17; TEMP 97.7; O2SAT 98
== END 2024-09-23 16:35 | DRG 441 ==
LOC: ER 00:55 → ED HOLD 04:17 → PCU 3S 05:47
PROVIDERS: ADMIT Internal Medicine Pulmonary Disease; ATTEND Internal Medicine
PROC: 30233N1 Transfusion of Nonautologous Red Blood Cells into Peripheral Vein, Percutaneous Approach (ICD-10-PCS; principal; 2024-09-14)
PROC: 0DJ08ZZ Inspection of Upper Intestinal Tract, Via Natural or Artificial Opening Endoscopic (ICD-10-PCS; 2024-09-14)
PROC: 30233K1 Transfusion of Nonautologous Frozen Plasma into Peripheral Vein, Percutaneous Approach (ICD-10-PCS; 2024-09-18)
PROC: 30233R1 Transfusion of Nonautologous Platelets into Peripheral Vein, Percutaneous Approach (ICD-10-PCS; 2024-09-20)
DX: K72.00 Acute and subacute hepatic failure without coma (principal); E43 Unspecified severe protein-calorie malnutrition; K21.01 Gastro-esophageal reflux disease with esophagitis, with bleeding; R57.8 Other shock; R57.1 Hypovolemic shock; D68.9 Coagulation defect, unspecified; E87.0 Hyperosmolality and hypernatremia; F10.239 Alcohol dependence with withdrawal, unspecified; I85.10 Secondary esophageal varices without bleeding; D61.818 Other pancytopenia; N17.9 Acute kidney failure, unspecified; K76.82 Hepatic encephalopathy; K70.31 Alcoholic cirrhosis of liver with ascites; D50.0 Iron deficiency anemia secondary to blood loss (chronic); K44.9 Diaphragmatic hernia without obstruction or gangrene; D53.9 Nutritional anemia, unspecified; E80.6 Other disorders of bilirubin metabolism; E87.6 Hypokalemia; J44.9 Chronic obstructive pulmonary disease, unspecified; Z87.891 Personal history of nicotine dependence; Z88.8 Allergy status to other drugs, medicaments and biological substances; Z88.5 Allergy status to narcotic agent; Z68.24 Body mass index [BMI] 24.0-24.9, adult
CPT/HCPCS: 36415; 36430; 43235; 71045; 76700; 80053; 82103; 82140; 82390; 82607; 82948; 83540; 83550; 83735; 84100; 84484; 84703; 85008; 85025; 85027; 85610; 85730; 86803; 86885; 86900; 86901; 86920; 87081; 87340; 87522; 92508; 92616; 93005; 94760; 96365; 97110; 97161; 97530; 99152; 99285; A4620; A6213; A6250; A6258; A6449; G0378; J2060; J2250; J2354; J2470; J3010; J3411; J3480; J3490; J7030; J7040; J7042; J7050; J7070; J7121; P9016; P9035; P9059

== ENCOUNTER 2024-09-24 07:54 | Inpatient (IN) | payer BC ==
[2024-09-24] VITALS (28 sets, daily range): BP systolic 47–106; BP diastolic 25–53; PULSE 45–66; RESP 10–21; O2SAT 91–100
[~2024-09-24] VITALS: Ht 172.7 cm; Wt 78.9 kg
[~2024-09-24 07:54] MED LIST: DIAZ5TAB5 PO; ONDA-103 PO
[2024-09-24] MEDS ORDERED: pantoprazole 40mg IV 80 MG in normal saline 100ml IV soln 100 ML IV ONE (07:55)
[2024-09-24] MEDS: normal saline 1000ML IV soln IVB ONE (08:03)
[2024-09-24] MEDS: pantoprazole 40 MG vial IV ONE (08:07)
[2024-09-24 08:18] LABS: BASOPHILS # (AUTO) 0.1 X10'3 (0-0.2); BASOPHILS % (AUTO) 0.5 % (0-1); EOSINOPHILS # (AUTO) 0.1 X10'3 (0-0.9); EOSINOPHILS % (AUTO) 0.8 % (0-6); HEMATOCRIT 22.8 % (35.0-45.0); HEMOGLOBIN 7.6 g/dl (12.0-16.0); LYMPHOCYTES # (AUTO) 2.1 X10'3 (1.1-4.8); LYMPHOCYTES % (AUTO) 17.2 % (21-51); MEAN CORPUSCULAR HEMOGLOBIN 39.5 PG (27.0-31.0); MEAN CORPUSCULAR HGB CONC 33.4 g/dL (33.0-36.5); MEAN CORPUSCULAR VOLUME 118.2 FL (78-98); MEAN PLATELET VOLUME 9.9 FL (7.4-10.4); MONOCYTES # (AUTO) 1.3 X10'3 (0-0.9); MONOCYTES % (AUTO) 10.6 % (2-12); NEUTROPHILS # (AUTO) 8.7 X10'3 (1.8-7.7); NEUTROPHILS % (AUTO) 70.9 % (42-75); PLATELET COUNT 158 X10'3 (140-440); RED BLOOD COUNT 1.93 X10'6 (4.20-5.60); WHITE BLOOD COUNT 12.3 X10'3 (4.5-11.0)
[2024-09-24] MEDS ORDERED: octreotide inj. 1,250 MCG in normal saline 250ml IV soln 250 ML IV ONE (08:20)
[2024-09-24 08:38] LABS: APTT 50 SECONDS (22-32); INR 3.2 INR
[2024-09-24 08:42] LABS: ALANINE AMINOTRANSFERASE 26 U/L (12-78); ALBUMIN 1.3 G/DL (3.4-5.0); ALBUMIN/GLOBULIN RATIO 0.5 (1.1-1.5); ALKALINE PHOSPHATASE 71 IU/L (46-116); ANION GAP 3 (8-16); ASPARTATE AMINO TRANSFERASE 74 U/L (10-37); BILIRUBIN,DIRECT 14.6 MG/DL (0-0.3); BLOOD UREA NITROGEN 12 MG/DL (7-18); BUN/CREATININE RATIO 8.9 (10.0-20.0); CALCIUM 7.6 MG/DL (8.5-10.1); CHLORIDE 103 MMOL/L (99-107); CREATININE 1.35 MG/DL (0.40-0.90); GLUCOSE 97 MG/DL (70-104); LIPASE 27 U/L (16-77); MAGNESIUM 1.4 MG/DL (1.5-2.4); POTASSIUM 5.3 MMOL/L (3.5-5.1); SODIUM 132 MMOL/L (135-145); TOTAL CARBON DIOXIDE 25.9 MMOL/L (24-32); TOTAL PROTEIN 3.9 G/DL (6.4-8.2); eCRCL 48 ML/MIN; eGFR 41 ML/MIN
[2024-09-24 08:43] LABS: PROTHROMBIN TIME 30.6 SECONDS (9.0-12.0)
[2024-09-24] MEDS: octreotide inj. 500 MCG in normal saline 100ml IV soln 97.5 ML IV SCH (08:56)
[2024-09-24] MEDS: octreotide 100mcg/1 ml ampule IV ONE (08:56)
[2024-09-24] MEDS: ringers solution, lacted 1,000 ML IV ONE (09:09)
[2024-09-24] MEDS ORDERED: morphine 2 MG/ML inj. syringe IV PRN (10:05)
[2024-09-24] MEDS ORDERED: HYDROcodone/acetaminophen 5mg/325mg tablet PO PRN (10:05)
[2024-09-24] MEDS ORDERED: potassium Cl 40MEQ/1/2NS 520ml 520 ML IV PRN (10:05)
[2024-09-24] MEDS ORDERED: haloperidol lactate 5mg/ml inj IM PRN (10:05)
[2024-09-24] MEDS ORDERED: magnesium sulf-water 2g/50mL 50 ML IV PRN (10:05)
[2024-09-24] MEDS ORDERED: mag hydrox/Alum hydrox/simeth 30ml oral suspension PO PRN (10:05)
[2024-09-24] MEDS ORDERED: potassium Cl 20 mEq SR tablet PO PRN ×2 (10:05)
[2024-09-24] MEDS ORDERED: magnesium hydroxide 30ml (MOM) UD suspension PO PRN (10:05)
[2024-09-24] MEDS ORDERED: ondansetron/PF 4mg/2ml inj IV PRN (10:05)
[2024-09-24] MEDS ORDERED: magnesium Cl slow-release 64mg tablet PO PRN (10:05)
[2024-09-24] MEDS ORDERED: acetaminophen 325mg tablet PO PRN (10:05)
[2024-09-24] MEDS: levoFLOXACIN-Levaquin 500mg/D5 100 ML IV ONE (10:42)
[2024-09-24] MEDS: thiamine 100mg/ml 2ml inj. IV SCH (11:40)
[2024-09-24] MEDS: ringers solution, lacted 1,000 ML IV SCH (11:41)
[2024-09-24] MEDS: magnesium sulf-water 2g/50mL 50 ML IV ONE (11:41)
[2024-09-24] MEDS ORDERED: fentaNYL/PF 50MCG/1 ML 2ML syringe ONE (13:15)
[2024-09-24] MEDS ORDERED: MIDAZolam 1 MG/ML 5ML VIAL ONE (13:16)
[2024-09-24] MEDS ORDERED: LIDOcaine 2% Viscous 15ml cup ONE (13:16)
[2024-09-24] MEDS ORDERED: epiNEPHrine 0.1mg/ml 10ml syringe ONE (13:46)
[2024-09-24] MEDS ORDERED: heparin, porcine 5000 units/ml vial SQ SCH ×2 (16:00→20:00)
[2024-09-24] MEDS: NORepinephrine 8mg/ 250ml NS 250 ML IV SCH (17:24)
[2024-09-24] MEDS: magnesium sulf-water 4G/100mL 100 ML IV PRN (17:25)
[2024-09-24 19:21] LABS: BASOPHILS # (AUTO) 0.1 X10'3 (0-0.2); BASOPHILS % (AUTO) 0.8 % (0-1); EOSINOPHILS % (AUTO) 0.2 % (0-6); HEMATOCRIT 25.9 % (35.0-45.0); HEMOGLOBIN 9.1 g/dl (12.0-16.0); LYMPHOCYTES # (AUTO) 2.3 X10'3 (1.1-4.8); LYMPHOCYTES % (AUTO) 17.2 % (21-51); MEAN CORPUSCULAR HGB CONC 34.9 g/dL (33.0-36.5); MONOCYTES # (AUTO) 1.4 X10'3 (0-0.9); NEUTROPHILS # (AUTO) 9.7 X10'3 (1.8-7.7); NEUTROPHILS % (AUTO) 71.8 % (42-75); PLATELET COUNT 136 X10'3 (140-440); RED BLOOD COUNT 2.52 X10'6 (4.20-5.60); RED CELL DISTRIBUTION WIDTH 28.2 % (11.5-14.5); WHITE BLOOD COUNT 13.5 X10'3 (4.5-11.0)
[2024-09-24] MEDS: LORazepam 2 mg/ml vial IV PRN ×2 (19:25→23:00)
[2024-09-24 19:36] LABS: ALANINE AMINOTRANSFERASE 25 U/L (12-78); ALBUMIN 1.2 G/DL (3.4-5.0); ALKALINE PHOSPHATASE 62 IU/L (46-116); ANION GAP 6 (8-16); BILIRUBIN,TOTAL 19.7 MG/DL (0.1-1.0); BLOOD UREA NITROGEN 17 MG/DL (7-18); CHLORIDE 107 MMOL/L (99-107); MAGNESIUM 1.8 MG/DL (1.5-2.4); SODIUM 136 MMOL/L (135-145)
[2024-09-24 19:39] LABS: ALBUMIN/GLOBULIN RATIO 0.5 (1.1-1.5); ASPARTATE AMINO TRANSFERASE 92 U/L (10-37); BUN/CREATININE RATIO 11.7 (10.0-20.0); CREATININE 1.45 MG/DL (0.40-0.90); GLUCOSE 92 MG/DL (70-104); PHOSPHORUS 5.8 MG/DL (2.3-4.5); POTASSIUM 5.6 MMOL/L (3.5-5.1); TOTAL PROTEIN 3.5 G/DL (6.4-8.2); eCRCL 44 ML/MIN; eGFR 37 ML/MIN
[2024-09-24 19:52] LABS: PLATELET ESTIMATE DECREASED
[2024-09-24 19:53] LABS: ACANTHOCYTES FEW; ANISOCYTOSIS 2+; POIKILOCYTOSIS 1+; STOMATOCYTES FEW
[2024-09-24] MEDS: docusate sod 100mg capsule PO SCH (20:00)
[2024-09-24] MEDS: K and/or MAG REPLACEMENT MC SCH (20:00)
[2024-09-24] MEDS: lactulose 20gm/30ml cup PO SCH (20:36)
[2024-09-24] MEDS: albumin (Human) 5% 250ml 250 ML IV ONE (23:00)
[2024-09-25] VITALS (30 sets, daily range): BP systolic 0–136; BP diastolic 0–65; PULSE 0–93; RESP 0–26; TEMP 97.5; O2SAT 69–100
[2024-09-25 02:45] LABS: BASOPHILS # (AUTO) 0.1 X10'3 (0-0.2); BASOPHILS % (AUTO) 0.6 % (0-1); EOSINOPHILS % (AUTO) 0.1 % (0-6); HEMATOCRIT 22.7 % (35.0-45.0); HEMOGLOBIN 7.9 g/dl (12.0-16.0); LYMPHOCYTES # (AUTO) 1.7 X10'3 (1.1-4.8); LYMPHOCYTES % (AUTO) 14.2 % (21-51); MEAN CORPUSCULAR HEMOGLOBIN 36.1 PG (27.0-31.0); MEAN CORPUSCULAR HGB CONC 34.6 g/dL (33.0-36.5); MEAN CORPUSCULAR VOLUME 104.2 FL (78-98); MEAN PLATELET VOLUME 10.1 FL (7.4-10.4); MONOCYTES # (AUTO) 1.6 X10'3 (0-0.9); MONOCYTES % (AUTO) 13.2 % (2-12); NEUTROPHILS # (AUTO) 8.8 X10'3 (1.8-7.7); NEUTROPHILS % (AUTO) 71.9 % (42-75); PLATELET COUNT 124 X10'3 (140-440); RED BLOOD COUNT 2.18 X10'6 (4.20-5.60); RED CELL DISTRIBUTION WIDTH 28.6 % (11.5-14.5); WHITE BLOOD COUNT 12.3 X10'3 (4.5-11.0)
[2024-09-25 03:03] LABS: ALANINE AMINOTRANSFERASE 35 U/L (12-78); ALBUMIN 1.5 G/DL (3.4-5.0); ALKALINE PHOSPHATASE 56 IU/L (46-116); ANION GAP 12 (8-16); BILIRUBIN,TOTAL 21.3 MG/DL (0.1-1.0); BLOOD UREA NITROGEN 17 MG/DL (7-18); CALCIUM 7.2 MG/DL (8.5-10.1); CHLORIDE 106 MMOL/L (99-107); MAGNESIUM 2.5 MG/DL (1.5-2.4); SODIUM 136 MMOL/L (135-145); TOTAL CARBON DIOXIDE 18.5 MMOL/L (24-32)
[2024-09-25 03:04] LABS: ALBUMIN/GLOBULIN RATIO 0.8 (1.1-1.5); ASPARTATE AMINO TRANSFERASE 148 U/L (10-37); BUN/CREATININE RATIO 9.6 (10.0-20.0); CREATININE 1.77 MG/DL (0.40-0.90); GLUCOSE 63 MG/DL (70-104); PHOSPHORUS 6.3 MG/DL (2.3-4.5); TOTAL PROTEIN 3.5 G/DL (6.4-8.2); eCRCL 36 ML/MIN; eGFR 30 ML/MIN
[2024-09-25] MEDS ORDERED: calcium chloride 100 MG/1 ML inj IV ONE (03:20)
[2024-09-25] MEDS: dextrose 50%-water 50ml dispensing syringe IV ONE (03:33)
[2024-09-25] MEDS: albuterol 2.5 MG/3 ML nebule NEB ONE (03:57)
[2024-09-25] MEDS: CALCIUM GLUC 1gm/50ml NACL,iso 50 ML IV ONE (04:01)
[2024-09-25] MEDS: sodium polystyrene sulfonate 15gm/60ml oral suspension PO ONE (04:32)
[2024-09-25] MEDS: insulin regular, human 10 units/0.1 ml syringe IV ONE (04:32)
[2024-09-25] MEDS: dextrose 50%-water 50ml dispensing syringe IV PRN (05:29)
[2024-09-25] MEDS ORDERED: DEXTROSE 15 GM of carb/4 tabs (each vial/BOTTLE has 4 tablets) PO PRN ×2 (05:35)
[2024-09-25] MEDS ORDERED: dextrose 50%-water 50ml dispensing syringe IV PRN ×2 (05:35)
[2024-09-25] MEDS: COMMUNICATION ORDER 1 EA MISC MC ONE ×2 (07:33→09:08)
[2024-09-25] MEDS: rifaximin 550mg tablet PO SCH (08:00)
[2024-09-25] MEDS ORDERED: pantoprazole 40 MG vial IV SCH (08:00)
[2024-09-25 08:04] LABS: HEMOGLOBIN 7.4 g/dl (12.0-16.0); MEAN CORPUSCULAR HEMOGLOBIN 36.9 PG (27.0-31.0); MEAN CORPUSCULAR HGB CONC 34.8 g/dL (33.0-36.5); MEAN CORPUSCULAR VOLUME 106.1 FL (78-98); MEAN PLATELET VOLUME 9.8 FL (7.4-10.4); PLATELET COUNT 128 X10'3 (140-440); RED BLOOD COUNT 2.01 X10'6 (4.20-5.60); RED CELL DISTRIBUTION WIDTH 29.7 % (11.5-14.5); WHITE BLOOD COUNT 18.4 X10'3 (4.5-11.0)
[2024-09-25 08:09] LABS: HEMATOCRIT 21.3 % (35.0-45.0)
[2024-09-25] MEDS: folic acid 1mg/0.2ml inj IV SCH (08:30)
[2024-09-25 08:46] LABS: ALBUMIN 1.4 G/DL (3.4-5.0); ANION GAP 14 (8-16); BLOOD UREA NITROGEN 21 MG/DL (7-18); CALCIUM 7.2 MG/DL (8.5-10.1); CHLORIDE 107 MMOL/L (99-107); SODIUM 137 MMOL/L (135-145)
[2024-09-25 08:50] LABS: BUN/CREATININE RATIO 9.7 (10.0-20.0); CREATININE 2.16 MG/DL (0.40-0.90); GLUCOSE 94 MG/DL (70-104); POTASSIUM 5.7 MMOL/L (3.5-5.1); eCRCL 30 ML/MIN; eGFR 24 ML/MIN
[2024-09-25] MEDS: morphine 10mg/ml inj. IV PRN ×2 (09:54→11:26)
[2024-09-25] MEDS: LORazepam 2 mg/ml vial IV PRN (11:26)
[2024-09-29] MEDS ORDERED: thiamine 100mg tablet PO SCH (08:00)
[2024-09-29] MEDS ORDERED: folic acid 1mg tablet PO SCH (08:00)
== END 2024-09-25 14:29 | DRG 432 ==
LOC: ER 07:54 → ED HOLD 10:09 → CICU 2S 13:46
PROVIDERS: ADMIT Internal Medicine Critical Care Medicine; ATTEND Internal Medicine Critical Care Medicine
PROC: 06L38CZ Occlusion of Esophageal Vein with Extraluminal Device, Via Natural or Artificial Opening Endoscopic (ICD-10-PCS; principal; 2024-09-24)
PROC: 30233N1 Transfusion of Nonautologous Red Blood Cells into Peripheral Vein, Percutaneous Approach (ICD-10-PCS; 2024-09-24)
DX: K70.11 Alcoholic hepatitis with ascites (principal); I85.11 Secondary esophageal varices with bleeding; G93.49 Other encephalopathy; R57.9 Shock, unspecified; K74.69 Other cirrhosis of liver; E87.70 Fluid overload, unspecified; J44.9 Chronic obstructive pulmonary disease, unspecified; K64.9 Unspecified hemorrhoids; K72.10 Chronic hepatic failure without coma; D64.9 Anemia, unspecified; M54.9 Dorsalgia, unspecified; Z51.5 Encounter for palliative care; Z88.5 Allergy status to narcotic agent
CPT/HCPCS: 36415; 36430; 43244; 71045; 80048; 80053; 80076; 82140; 82948; 83605; 83690; 83735; 84100; 84145; 85008; 85025; 85027; 85610; 85730; 86885; 86900; 86901; 86920; 87081; 93005; 94640; 99152; 99153; 99291; 99292; A4620; A5200; A6213; A6402; A6449; C1751; C1758; G0378; J0171; J0610; J1815; J1956; J2060; J2250; J2274; J2354; J2470; J3010; J3411; J3475; J3490; J7030; J7040; J7120; P9016; P9045